=== PATIENT | male | born 1950 | race Caucasian/White ===

== ENCOUNTER 2018-10-31 13:07 | Observation (INO) ==
--- NOTE | 2018-10-31 13:23 | Emergency Department Note ---
Disposition Clinical Impression: Urinary tract infection, Prostatitis Disposition: Home, Self-Care Condition: Fair Instructions: Urinary Tract Infection in Men (ED) Reasons to Return/Additional Instructions: Blood pressure screening: When you had your blood pressure taken, if the top number was greater than 120 with a bottom number was greater than 80, I discussed and recommended that you call your primary care provider or a physician of your choice this week to arrange follow-up for further evaluation of your blood pressure. Elevated blood pressures which go untreated can lead to stroke, heart attack, kidney failure and other life-threatening diseases. This is a screening exam and recommendations are to follow with your Family Physician. ( We discussed reasons why the elevation could be occurring at this time. ) If you have had an EKG and/or x-ray performed in the emergency department, it will be reviewed by the cycle repairer and/or radiologist. If the review changes your diagnosis or treatment you will be contacted at the phone number you provided. Prescribed outpatient testing: Please call to schedule an appointment for the test that was ordered on the form provided. If you been prescribed an antibiotic: Take it as instructed until itis all finished. If you cannot tolerate that medication for some reason, call your physician for a replacement. If he had a specimen collected for a culture, a culture report takes 48-72 hours to generate. You will be contacted if a change in treatment is needed. Return if your condition worsens or if you have severe pain, fever, vomiting or difficulty breathing. If you received or were prescribed a medication that may cause drowsiness (Tramadol, Phenergan, Trazodone, Diazepam, Lorazepam, Hydroxyzine, Xanax, Hydrocodone, Oxycodone, Codeine, or any other medication) DO NOT drive or drink alcohol, or operate machinery that requires you to be alert for at least 8 hours after taking that medication. If you smoke or chew tobacco products: discuss with your family physician options to help in the cessation in the use of tobacco products. If you to find a physician: Go to [email or web address] or call: [facility], [facility] [phone] [facility], You may have multiple scripts and some may have been electronically sent . If you are give a printed script please also take this in when filling the scripts. A diagnosis may require multiple medications to treat and all are important in your healthcare issues. Prescriptions: levoFLOXacin [Levaquin] 500 mg PO DAILY #10 tablet Phenazopyridine HCl [Pyridium] 200 mg PO TIDAC #9 tab Referrals: NONE,PCP [Non-Partnered Physician] - Forms: ED Satisfaction Letter Time of Disposition: 15:10 Male Urogenital HPI - General Chief complaint: ED Urogenital-Male Stated complaint: unable to urinate, have bm x 2 days Time Seen by Provider: 10/31/18 13:23 Source: patient Mode of arrival: ambulatory Limitations: no limitations Nursing Notes Reviewed: Yes Vital Signs Reviewed: Yes - History of Present Illness HPI Narrative: 68-year-old male who presents emergency room is having difficulty urinating urgency frequency if he may have a UTI he's had history of prostate problems in the past. He denies any blurred vision double vision loss vision denies diarrhea melena hematochezia hematemesis patient states that he is only urinated tiny bit since yesterday he denies any flank pain or discomfort denies any rashes or lesions patient states that he is having little bit of dribbling but no penile discharge or foul odor he denies any history of STD exposure he denies any numbness tingling weakness he states he has little bit of a suprapubic abdominal pain he denies any additional complaints with an entire review of systems Pt Subjective Complaint: dysuria, urinary retention Onset (ago): Just CIRCULATION REPRESENTATIVE Duration: gradually worsening Severity: moderate, severe Severity scale (1-10): 8 Quality: aching Improves with: urination Worsens with: movement new medication Reports: urinary retention, dysuria, nausea/vomiting. Denies: discharge, swelling, mass, rash, hematuria, fever - Related Data Home Medications Medication Instructions Recorded Confirmed Pravastatin Sodium [Pravachol] 40 mg PO HS 08/22/16 10/31/18 Previous Rx's Medication Instructions Recorded Phenazopyridine HCl [Pyridium] 200 mg PO TIDAC #9 tab 10/31/18 levoFLOXacin [Levaquin] 500 mg PO DAILY #10 tablet 10/31/18 Allergies Allergy/AdvReac Type Severity Reaction Status Date / Time codeine AdvReac Nausea Verified 08/22/16 21:28 Penicillins [PCN] AdvReac Nausea Verified 10/31/18 13:09 All systems ED: reviewed and negative except as stated. Review of Systems: As Per HPI Constitutional: Reports: weakness. Denies: fever, chills Eyes: Denies: eye pain, eye discharge ENT ED: Denies: ear pain, throat pain, dental pain Cardiovascular: Denies: chest pain, palpitations Respiratory: Denies: cough, dyspnea, wheezes Gastrointestinal: Reports: abdominal pain. Denies: nausea, vomiting Genitourinary: Reports: urgency, dysuria, frequency, other (retention) Musculoskeletal: Denies: back pain, neck pain Integumentary: Denies: rash, abrasion Neurological: Denies: headache, weakness Psychiatric: Denies: anxiety, depression Endocrine: Denies: fatigue Hematological/Lymphatic: Denies: easy bleeding Allergic/Immunologic: Denies: facial swelling Past Medical History - Past Medical History Attestation: Yes The following information was validated with the patient. Source: patient, old records reviewed, nursing notes reviewed Medical history: Reports: CVA, hyperlipidemia, hypertension, other Psychiatric history: Reports: no psych history - Social History Smoking Status: Current every day smoker Smokeless Tobacco Status: No Alcohol use: Reports: none Drug use: Reports: none Physical Exam - General Limitations: no limitations General appearance: alert, in no apparent distress - Head Head exam: atraumatic, normocephalic, normal inspection - Eye Eye exam: Present: normal appearance, PERRL, EOMI - ENT ENT exam: normal exam, normal oropharynx, mucous membranes moist, TM's normal bilaterally, normal external ear exam - Neck Neck exam: Present: normal inspection, full ROM, trachea midline - Chest Chest inspection: Present: normal inspection, symmetric chest wall rise - Respiratory Respiratory exam: Present: normal lung sounds bilaterally - Cardiovascular Cardiovascular exam: Present: regular rate, normal rhythm, normal heart sounds - Abdominal Exam Abdominal Exam: Present: soft, Non-Tender, normal bowel sounds. Absent: mass, pulsatile mass - Extremities Exam Extremities exam: Present: normal inspection, full ROM, normal capillary refill. Absent: tenderness, pedal edema, joint swelling, calf tenderness - Back Exam Back exam: Present: normal inspection, full ROM - Neurological Exam Neurological exam: Present: alert, oriented X3, CN II-XII intact, normal gait - Psychiatric Psychiatric exam: Present: normal affect, normal mood - Skin Skin exam: Present: warm, dry, intact, normal color Course Course Narrative: Patient is seen and examined laboratory data was obtained after urinalysis showed that he had significant UTI with results having mentation and elevated white count I recommended hospitalization initially he declined even though he understood the risks and benefits of going home and the potential this worsened now the patient is agreed to stay after he has discussion with his was admitted to [facility] for IV antibiotics Vital Signs Temperature 97.9 F 10/31/18 13:11 Pulse Rate 73 10/31/18 13:11 Respiratory Rate 18 10/31/18 13:11 Blood Pressure 138/74 10/31/18 13:11 O2 Sat by Pulse Oximetry 96 10/31/18 13:11 Temperature 97.9 F 10/31/18 13:11 Pulse Rate 73 10/31/18 13:11 Respiratory Rate 18 10/31/18 13:11 Blood Pressure 138/74 10/31/18 13:11 O2 Sat by Pulse Oximetry 96 10/31/18 13:11 Oxygen Delivery Oxygen Delivery Room Air Urogenital-Male - Differential Diagnosis Likely: urinary tract infection - Medical Records Medical records reviewed: Yes I reviewed the patient's medical records. - Lab Data Lab results reviewed: Yes I reviewed the patient's lab results. Lab Results 10/31/18 Range/Units 13:20 Urine Color Yellow (Yellow) Urine Clarity Turbid A (Clear) Urine pH 6.0 (5.0-8.0) pH Units Ur Specific [place] 1.020 (1.010-1.025) Urine Protein 100 H (Neg-Trace) mg/dL Urine Glucose (UA) Normal (Normal) mg/dL Urine Ketones Trace H (Negative) mg/dL Urine Blood Large H (Negative) Urine Nitrite Positive A (Negative) Urine Bilirubin Negative (Negative) Urine Urobilinogen Normal (Normal) mg/dL Ur Leukocyte Esterase Large H (Negative) Urine Microscopic RBC 15-30 H (0-3) per hpf Urine Microscopic WBC TNTC H (0-3) per hpf Ur Squamous Epith Cells Few (None-Few) per lpf Urine Bacteria Many H (None-Few) per hpf Ur Culture Indicated? YES A (NO) Critical Care Time Critical Care Time: No
[2018-10-31 13:31] LABS: Bilirubin,Urine Negative (Negative); Blood,Urine Large (Negative); Clarity,Urine Turbid (Clear); Color,Urine Yellow (Yellow); Glucose,Urine (UA) Normal (Normal); Ketones,Urine Trace mg/dL (Negative); Leukocyte Esterase,Urine Large (Negative); Nitrite,Urine Positive (Negative); Protein,Urine 100 mg/dL (Neg-Trace); Urobilinogen,Urine Normal (Normal)
[2018-10-31 13:42] LABS: Bacteria,Urine Many per hpf (None-Few); RBC,Urine 15-30 per hpf (0-3); Squamous Epithelial Cell,Urine Few per lpf (None-Few); WBC,Urine TNTC per hpf (0-3)
[2018-10-31 14:32] LABS: Basophils # 0.1 K/mcL (0.0-0.2); Basophils % 0.5 %; Hematocrit 46.9 % (37.5-50.1); Hemoglobin 16.4 g/dL (12.9-16.9); Immature Granulocytes % 0.6 % (0-4); Lymphocytes # 1.5 K/mcL (0.6-4.6); Lymphocytes % 7.6 %; Mean Corpuscular Hemoglobin 33.3 pg (28.0-33.3); Mean Corpuscular Volume 95.3 fL (83.0-100.0); Mean Platelet Volume 10.3 fL (9.4-12.4); Monocytes # 1.4 K/mcL (0.0-1.3); Neutrophils # 17.1 K/mcL (1.6-8.9); Platelet Count 267 K/mcL (140-400); Red Blood Count 4.92 M/mcL (4.19-5.50); Red Cell Distribution Width 13.8 % (11.5-14.5); Segmented Neutrophils % 84.3 %
[2018-10-31 14:52] LABS: Large Platelets Present (Not Present); Platelet Clumps Few (Not Present); Platelet Estimate Normal (Normal)
[2018-10-31 14:53] LABS: Anisocytosis 1+ (Not Present)
[2018-10-31 14:56] LABS: BUN/Creatinine Ratio 14 (6-26); Blood Urea Nitrogen 16 mg/dL (8-23); Calcium 9.4 mg/dL (8.6-10.3); Carbon Dioxide 29 mEq/L (23-29); Chloride 102 mEq/L (98-107); Glucose 135 mg/dL (70-105); Osmolality,Calculated 287 (280-300); Potassium 4.2 mEq/L (3.5-5.1); Sodium 137 mEq/L (136-145); eGFR For Non-African Americans > 60 (> 60)
[2018-10-31] MEDS ORDERED: Naloxone 0.4 MG/ML INJ IVP PRN (15:42)
[2018-10-31] MEDS ORDERED: cefTRIAXone 2,000 MG in Water for inj. (sterile) 20 ML 20 ML IVP ONE (16:01)
[2018-10-31] MEDS: 0.9 % Sodium Chloride 1,000 ML IVC SCH ×2 (16:17→23:46)
[2018-10-31] MEDS ORDERED: Ibuprofen 800 MG TABLET PO PRN (20:13)
[2018-11-01 06:20] LABS: Basophils # 0.1 K/mcL (0.0-0.2); Basophils % 0.4 %; Hematocrit 40.5 % (37.5-50.1); Hemoglobin 14.4 g/dL (12.9-16.9); Immature Granulocytes % 0.6 % (0-4); Lymphocytes # 2.6 K/mcL (0.6-4.6); Lymphocytes % 11.6 %; Mean Corpuscular HGB Conc 35.6 g/dL (31.6-35.5); Mean Corpuscular Hemoglobin 33.3 pg (28.0-33.3); Mean Corpuscular Volume 93.8 fL (83.0-100.0); Mean Platelet Volume 10.1 fL (9.4-12.4); Monocytes # 2.1 K/mcL (0.0-1.3); Monocytes % 9.2 %; Neutrophils # 17.7 K/mcL (1.6-8.9); Platelet Count 250 K/mcL (140-400); Red Blood Count 4.32 M/mcL (4.19-5.50); Red Cell Distribution Width 13.2 % (11.5-14.5); Segmented Neutrophils % 78.2 %
[2018-11-01 06:38] LABS: BUN/Creatinine Ratio 17 (6-26); Blood Urea Nitrogen 14 mg/dL (8-23); Calcium 8.5 mg/dL (8.6-10.3); Carbon Dioxide 23 mEq/L (23-29); Chloride 101 mEq/L (98-107); Glucose 119 mg/dL (70-105); Osmolality,Calculated 276 (280-300); Potassium 3.4 mEq/L (3.5-5.1); Sodium 132 mEq/L (136-145); eGFR For Non-African Americans > 60 (> 60)
[2018-11-01] MEDS ORDERED: cefTRIAXone 1,000 MG in Water for inj. (sterile) 20 ML 10 ML IVP ONE (09:00)
[2018-11-01] MEDS ORDERED: (Breo Ellipta 100-25 Mcg Inh) IH SCH (10:00)
[2018-11-01] MEDS ORDERED: (Incruse Ellipta] 62.5 MCG) IH SCH (10:00)
--- NOTE | 2018-11-01 12:23 | Internal Med History&Physical ---
Date of Encounter: 11/01/18 Time of Encounter: 11:45 Assessment and Plan (1) Urinary tract infection Current visit: Yes Status: Acute Urine culture has been ordered. He was given Rocephin in emergency room. Lactobacillus will be started. I will give him a dose of IV Levaquin. Qualifiers: Urinary tract infection type: site unspecified Hematuria presence: with hematuria Qualified Code(s): N39.0 - Urinary tract infection, site not specified; R31.9 - Hematuria, unspecified (2) Prostatitis Current visit: Yes Status: Acute As above Qualifiers: Prostatitis type: acute Qualified Code(s): N41.0 - Acute prostatitis (3) Hypertension Current visit: Yes Status: Chronic Continue losartan and Bystolic Qualifiers: Hypertension type: essential hypertension Qualified Code(s): I10 - Essential (primary) hypertension (4) COPD (chronic obstructive pulmonary disease) Current visit: Yes Status: Chronic Room air oximetry will be checked on 6 minute walk prior to discharge. Qualifiers: COPD type: unspecified COPD Qualified Code(s): J44.9 - Chronic obstructive pulmonary disease, unspecified (5) Weight loss Current visit: Yes Status: Acute TSH was normal at 1.995 on 09/20/2018. Internal Medicine - H&P: HPI Chief complaint: Inability to urinate Admitted From: Emergency Dept Plans for Post Hospital Care: Home History of present illness: Mr. Hernandez is a 68 year old male who came to emergency room stating he was unable to urinate after awakening the morning of admission. He had a sensation of fullness in his perineum area. He reports intermittent chills over the preceding 4 days without feeling fevered. He came to emergency room and was evaluated and felt to have UTI and prostatitis. He was given IV Rocephin and admitted to [facility] floor for ongoing care needs. He denies previous similar episodes. He denies stream initiation problems previously. He has not had visible hematuria. He denies other kidney bladder or prostate disorders. Past Med Surg Social Fam HX - Past Medical History Medical history: CVA, hyperlipidemia, hypertension, other Additional medical history: "light stroke", brain aneurism Psychiatric history: no psych history - Social History Smoking Status: Current every day smoker Packs per day: 0.5 Smokeless Tobacco Status: No Alcohol use: none Drug use: none - Family History Mother Hx Family Cancer: Yes Father Hx Family Cancer: Yes Internal Medicine - H&P: Meds Pravastatin Sodium [Pravachol] 40 mg PO HS 08/22/16 [History] Fluticasone/Vilanterol [Breo Ellipta 100-25 Mcg INH] 1 each IH DAILY 10/31/18 [History] Ibuprofen 800 mg PO TID PRN 10/31/18 [History] Losartan Potassium [Cozaar] 100 mg PO DAILY 10/31/18 [History] Nebivolol HCl [Bystolic] 20 mg PO DAILY 10/31/18 [History] Phenazopyridine HCl [Pyridium] 200 mg PO TIDAC #9 tab 10/31/18 [Rx] Umeclidinium [place] [Incruse Ellipta] 62.5 mcg IH DAILY 10/31/18 [History] levoFLOXacin [Levaquin] 500 mg PO DAILY #10 tablet 10/31/18 [Rx] Allergy/AdvReac Type Severity Reaction Status Date / Time codeine AdvReac Nausea Verified 08/22/16 21:28 Penicillins [PCN] AdvReac Nausea Verified 10/31/18 13:09 All Systems PM: A 10-system review of systems was performed and is negative for pertinent findings except as documented above in the HPI. Review of systems: Gen.: He states his weight has decreased 45 pounds in the past 18 months, inten tionally Cardiovascular: He has hypertension but denies CO heart failure angina DVT or pulmonary embolus. Respiratory: He has smoked since age 30 up to 3 packs per day. He has a diagnosis of COPD from PFTs approximately January 2017. He does not use home oxygen and has not been tested for sleep apnea. GI: He denies disorders of his liver gallbladder or exocrine pancreas : As per history of present illness Neurologic: He reports having a "stroke" in 2013 without residual neurologic deficit. He has had no recurrence. 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 He denies seizures. Endocrine: He denies diabetes thyroid disease or hyperlipidemia Hematology/oncology: He denies blood disorders cancers or anemia Psychiatric: He has mild anxiety and depression but denies other mental health issues [place] skeletal: He has occasional DJD pain. He denies gout or other bone joint or muscle disorders. - Constitutional Vitals: Temp Pulse Resp BP Pulse Ox 97.9 F 54 18 122/62 96 11/01/18 11:42 11/01/18 11:42 11/01/18 11:42 11/01/18 11:42 11/01/18 11:42 Exam: Gen.: He is a well-developed well-nourished male sitting in a chair at bedside who appears in no acute distress HEENT: Head is atraumatic and normocephalic. Eyes: EOMI. There is no scleral icterus. Mouth: Mucosa is moist. Neck: Supple and nontender. There is no thyromegaly or adenopathy noted. Heart: Regular without murmurs gallops or ectopics Lungs: No wheezes or crackles are heard. Abdomen: Soft and nontender. No masses or guarding are noted. Extremities: There is no pitting edema of his ankles. He has minimal DJD changes of his hands. Neurologic: Mental status: He is talkative and a good historian. Cranial ne rves: Smile is symmetric. Forehead wrinkles bilaterally. Tongue protrudes midline. EOMI. Motor: There is no pronator drift. Cerebellar: Finger to nose is intact bilaterally. Skin: Warm and dry Internal Med - H&P Results - Labs CBC & Chem 7: 11/01/18 05:00 11/01/18 05:00 Labs: Short CBC 10/31/18 11/01/18 Range/Units 14:25 05:00 WBC 20.3 H 22.6 H (4.3-11.1) K/mcL Hgb 16.4 14.4 D (12.9-16.9) g/dL Hct 46.9 40.5 (37.5-50.1) % Plt Count 267 250 (140-400) K/mcL Neutrophils # 17.1 H 17.7 H (1.6-8.9) K/mcL BMP 10/31/18 11/01/18 14:26 05:00 Sodium 137 132 L Potassium 4.2 3.4 L Chloride 102 101 Carbon Dioxide 29 23 BUN 16 14 Creatinine 1.13 0.84 Glucose 135 H 119 H Calcium 9.4 8.5 L Urine 10/31/18 Range/Units 13:20 Urine Color Yellow (Yellow) Urine Clarity Turbid A (Clear) Urine pH 6.0 (5.0-8.0) pH Units Ur Specific [place] 1.020 (1.010-1.025) Urine Protein 100 H (Neg-Trace) mg/dL Urine Glucose (UA) Normal (Normal) mg/dL
[2018-11-01] MEDS ORDERED: Levofloxacin 750 MG/150 ML 750 MG/150 ML BAG IVPB SCH (13:00)
[2018-11-01] MEDS ORDERED: Finasteride 5 MG TABLET PO SCH (18:15)
[2018-11-01 19:15] VITALS: BP 121/57
--- NOTE | 2018-11-01 20:12 | Discharge Summary ---
Orders not resulted at time of discharge: Pending orders 10/31/18 13:20 Culture,Urine [RM] Stat 11/02/18 04:00 Basic Metabolic Panel AM 0400 Complete Blood Count [HEME] AM 0400 Date of Encounter: 11/01/18 Time of Encounter: 20:05 - Discharge Diagnosis (1) Urinary tract infection Priority: Primary Status: Acute Qualifiers: Urinary tract infection type: site unspecified Hematuria presence: with hematuria Qualified Code(s): N39.0 - Urinary tract infection, site not specified; R31.9 - Hematuria, unspecified (2) Prostatitis Priority: Secondary Status: Acute Qualifiers: Prostatitis type: acute Qualified Code(s): N41.0 - Acute prostatitis (3) Hypertension Priority: Secondary Status: Chronic Qualifiers: Hypertension type: essential hypertension Qualified Code(s): I10 - Essential (primary) hypertension (4) COPD (chronic obstructive pulmonary disease) Priority: Secondary Status: Chronic Qualifiers: COPD type: unspecified COPD Qualified Code(s): J44.9 - Chronic obstructive pulmonary disease, unspecified (5) Weight loss Priority: Secondary Status: Acute Hospital course: Mr. Hernandez is a 68 year old male who came to emergency room stating he was unable to urinate after awakening the morning of admission. He had a sensation of fullness in his perineum area. He reports intermittent chills over the preceding 4 days without feeling fevered. He came to emergency room and was evaluated and felt to have UTI and prostatitis. He was given IV Rocephin and admitted to [facility] for ongoing care needs. Initial orders were written by the emergency room physician. I saw him on November 01 and performed a history and physical. I gave him a dose of IV Levaquin for added spectrum coverage. Lactobacillus was ordered. CT of chest abdomen pelvis was done to further evaluate hematuria, urinary obstruction, and reported [address] scan showed no worrisome abnormalities suspicious for malignancy in the chest. There was enlarged prostate pressing on the floor of the bladder with suggestion of bladder floor thickening with plaque-like mass concerning for possible malignancy. There was a 1 cm right adrenal mass felt to be benign. 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 He reported left testicular pain the evening of and stated that it started the previous day but he had not mentioned it earlier during the H&P. Exam showed enlargement of the left testicle with slight tenderness to palpation. No masses were palpated. I discussed the findings of the CT scans with patient and his . I felt he should be evaluated by urology and he was agreeable for transfer to [facility]. I spoke with Dr. Garza who agreed to accept him in transfer the evening of November 01. - Time Spent with Patient Total time spent providing and/or coordinating discharge services: - Discharge Medications Home Medications: Pravastatin Sodium [Pravachol] 40 mg PO HS 08/22/16 [History] Fluticasone/Vilanterol [Breo Ellipta 100-25 Mcg INH] 1 each IH DAILY 10/31/18 [History] Ibuprofen 800 mg PO TID PRN 10/31/18 [History] Losartan Potassium [Cozaar] 100 mg PO DAILY 10/31/18 [History] Nebivolol HCl [Bystolic] 20 mg PO DAILY 10/31/18 [History] Phenazopyridine HCl [Pyridium] 200 mg PO TIDAC #9 tab 10/31/18 [Rx] Umeclidinium [place] [Incruse Ellipta] 62.5 mcg IH DAILY 10/31/18 [History] levoFLOXacin [Levaquin] 500 mg PO DAILY #10 tablet 10/31/18 [Rx] Allergies/Adverse Reactions: Allergy/AdvReac Type Severity Reaction Status Date / Time codeine AdvReac Nausea Verified 08/22/16 21:28 Penicillins [PCN] AdvReac Nausea Verified 10/31/18 13:09 Date of admission: 10/31/18 15:39 Primary care physician: Noa Schulz - Constitutional Vitals: Temp Pulse Resp BP Pulse Ox 98.6 F 62 18 121/57 95 11/01/18 19:15 11/01/18 19:15 11/01/18 19:15 11/01/18 19:15 11/01/18 19:15 - Patient Status Disposition: Transfer Other Condition: Fair - Discharge Instructions
[2018-11-01] MEDS ORDERED: Lactobacillus 1 EACH CAP.SPRINK PO SCH (21:00)
== END 2018-11-01 21:40 | disposition other institution (70) ==
LOC: EMEROOPIK 13:07 → INPPIK 13:07
PROVIDERS: ADMIT Internal Medicine; ATTEND Internal Medicine